=== PATIENT | female | born 1990 | race Caucasian/White ===

== ENCOUNTER 2016-04-17 17:32 | Emergency (ER) | payer MEDICAID ==
[2016-04-17 18:34] LABS: BASOPHILS 0.1 % (0.0-2.0); EOSINOPHILS 0.2 % (0-7); HEMATOCRIT 34.4 % (36.0-48.0); HEMOGLOBIN 11.9 g/dL (12-16); IMMATURE GRANULOCYTES 0.1 % (0-5); LYMPHOCYTES 12.8 % (15-50); MCH 30.7 pg (26.0-34.0); MCHC 34.6 g/dL (31.0-37.0); MCV 88.9 fL (80.0-100.0); NEUTROPHILS 82.8 % (40-80); PLATELET COUNT 205 10x3/uL (130-400); RBC 3.87 10x6/uL (4.00-5.40); RDW 13.1 % (11.5-14.5); WBC 8.3 10x3/uL (4.8-10.8)
[2016-04-17 18:42] LABS: APPEARANCE CLEAR (CLEAR); BILIRUBIN NEGATIVE (NEGATIVE); COLOR DK YELLOW (YELLOW); GLUCOSE NEGATIVE (NEGATIVE); KETONE LARGE mg/dL (NEGATIVE); LEUKOCYTE ESTERASE TRACE (NEGATIVE); NITRITE NEGATIVE (NEGATIVE); PROTEIN TRACE mg/dL (NEGATIVE); UROBILINOGEN NORMAL (NORMAL)
[2016-04-17 18:44] LABS: BACTERIA FEW /hpf (NONE SEEN); EPITHELIAL CELLS 0-5 /hpf (0-5); MUCUS <1+ /lpf (NONE SEEN); RED CELLS - URINE 0-5 /hpf (0-5); WHITE CELLS - URINE 0-5 /hpf (0-5)
[2016-04-17 18:56] LABS: ALBUMIN 3.7 g/dL (3.4-5.0); ALKALINE PHOSPHATASE 63 U/L (46-116); ALT (SGPT) 26 U/L (10-68); BILIRUBIN - TOTAL 0.59 mg/dL (0.2-1.3); CALC OSMOLALITY 267 mosm/kg (275-300); CALCIUM 9.2 mg/dL (8.5-10.1); CHLORIDE - SERUM 100 mmol/L (98-107); CREATININE - SERUM 0.6 mg/dL (0.6-1.3); GLUCOSE 95 mg/dL (74-106); POTASSIUM - SERUM 3.5 mmol/L (3.5-5.1); PROTEIN - SERUM 7.6 g/dL (6.4-8.2); SODIUM 135 mmol/L (136-145); UREA NITROGEN 7 mg/dL (7-18); eGFR NON AFRICAN AMERICAN > 90 mL/min (90-120)
[2016-04-17 19:22] LABS: AMYLASE - SERUM 47 U/L (25-115); HCG - QUANTITATIVE (MATERNAL) 56277 mIU/mL; LIPASE 93 U/L (73-393)
== END 2016-04-17 21:40 | disposition home or self-care (01) ==
LOC: D.ER 17:32
PROVIDERS: Family Medicine
DX: R10.32 Left lower quadrant pain (principal); R11.2 Nausea with vomiting, unspecified; Z3A.11 11 weeks gestation of pregnancy; B19.20 Unspecified viral hepatitis C without hepatic coma; F17.200 Nicotine dependence, unspecified, uncomplicated

== ENCOUNTER 2017-04-04 09:53 | Emergency (ER) | payer MEDICAID ==
[2017-04-04 10:41] LABS: APPEARANCE CLEAR (CLEAR); BILIRUBIN NEGATIVE (NEGATIVE); COLOR YELLOW (YELLOW); GLUCOSE NEGATIVE (NEGATIVE); KETONE NEGATIVE (NEGATIVE); NITRITE NEGATIVE (NEGATIVE); PROTEIN NEGATIVE (NEGATIVE); SPECIFIC GRAVITY 1.005 (1.005-1.020); UROBILINOGEN NORMAL (NORMAL)
[2017-04-04 10:47] LABS: BASOPHILS 0.1 % (0-2); HEMATOCRIT 35.5 % (36.0-48.0); HEMOGLOBIN 12.3 g/dL (12-16); IMMATURE GRANULOCYTES 0.3 % (0-5); LYMPHOCYTES 18.9 % (15-50); MCH 30.6 pg (26.0-34.0); MCHC 34.6 g/dL (31.0-37.0); MCV 88.3 fL (80.0-100.0); MEAN PLATELET VOLUME 8.6 fL (7.4-10.4); MONOCYTES 4.9 % (2-11); NEUTROPHILS 74.8 % (40-80); PLATELET COUNT 207 10x3/uL (130-400); RBC 4.02 10x6/uL (4.00-5.40); RDW 13.3 % (11.5-14.5); WBC 9.4 10x3/uL (4.8-10.8)
[2017-04-04 10:55] LABS: BACTERIA FEW /hpf (NONE SEEN); EPITHELIAL CELLS 0-5 /hpf (0-5); MUCUS <1+ /lpf (NONE SEEN); RED CELLS - URINE RARE /hpf (0-5); WHITE CELLS - URINE 0-5 /hpf (0-5)
[2017-04-04 11:09] LABS: ALBUMIN 3.8 g/dL (3.4-5.0); ALKALINE PHOSPHATASE 66 U/L (46-116); ALT (SGPT) 58 U/L (10-68); CALC OSMOLALITY 270 mosm/kg (275-300); CALCIUM 9.1 mg/dL (8.5-10.1); CARBON DIOXIDE 25.6 mmol/L (21.0-32.0); CHLORIDE - SERUM 104 mmol/L (98-107); CREATININE - SERUM 0.5 mg/dL (0.6-1.3); GLUCOSE 73 mg/dL (74-106); POTASSIUM - SERUM 4.1 mmol/L (3.5-5.1); PROTEIN - SERUM 7.1 g/dL (6.4-8.2); SODIUM 137 mmol/L (136-145); UREA NITROGEN 8 mg/dL (7-18); eGFR NON AFRICAN AMERICAN > 90 mL/min (90-120)
[2017-04-04 11:30] LABS: HCG - QUANTITATIVE (MATERNAL) 67242 mIU/mL
== END 2017-04-04 12:23 | disposition home or self-care (01) ==
LOC: D.ER 09:53
PROVIDERS: Family Medicine
DX: O23.41 Unspecified infection of urinary tract in pregnancy, first trimester (principal); Z3A.11 11 weeks gestation of pregnancy; A59.9 Trichomoniasis, unspecified

== ENCOUNTER 2017-04-12 23:44 | Emergency (ER) | payer MEDICAID ==
[2017-04-13 00:29] LABS: APPEARANCE CLEAR (CLEAR); BILIRUBIN NEGATIVE (NEGATIVE); COLOR YELLOW (YELLOW); GLUCOSE NEGATIVE (NEGATIVE); KETONE NEGATIVE (NEGATIVE); NITRITE NEGATIVE (NEGATIVE); PROTEIN NEGATIVE (NEGATIVE); SPECIFIC GRAVITY 1.025 (1.005-1.020); UROBILINOGEN NORMAL (NORMAL)
[2017-04-13 00:30] LABS: BASOPHILS 0.1 % (0-2); EOSINOPHILS 1.3 % (0-7); HEMATOCRIT 34.5 % (36.0-48.0); HEMOGLOBIN 11.8 g/dL (12-16); IMMATURE GRANULOCYTES 0.2 % (0-5); LYMPHOCYTES 21.8 % (15-50); MCH 30.2 pg (26.0-34.0); MCHC 34.2 g/dL (31.0-37.0); MCV 88.2 fL (80.0-100.0); MONOCYTES 5.7 % (2-11); NEUTROPHILS 70.9 % (40-80); PLATELET COUNT 209 10x3/uL (130-400); RBC 3.91 10x6/uL (4.00-5.40); RDW 13.5 % (11.5-14.5); WBC 9.3 10x3/uL (4.8-10.8)
[2017-04-13 00:43] LABS: UDS - AMPHET NEGATIVE QUAL (NEGATIVE); UDS - BARB NEGATIVE QUAL (NEGATIVE); UDS - BENZO NEGATIVE QUAL (NEGATIVE); UDS - COCAINE NEGATIVE QUAL (NEGATIVE); UDS - OPIATE NEGATIVE QUAL (NEGATIVE); UDS - PCP NEGATIVE QUAL (NEGATIVE); UDS - THC NEGATIVE QUAL (NEGATIVE)
[2017-04-13 00:50] LABS: ALBUMIN 3.7 g/dL (3.4-5.0); ALKALINE PHOSPHATASE 64 U/L (46-116); ALT (SGPT) 58 U/L (10-68); BILIRUBIN - TOTAL 0.17 mg/dL (0.2-1.3); CALC OSMOLALITY 277 mosm/kg (275-300); CARBON DIOXIDE 27.4 mmol/L (21.0-32.0); CHLORIDE - SERUM 103 mmol/L (98-107); CREATININE - SERUM 0.6 mg/dL (0.6-1.3); GLUCOSE 90 mg/dL (74-106); POTASSIUM - SERUM 3.9 mmol/L (3.5-5.1); PROTEIN - SERUM 7.1 g/dL (6.4-8.2); SODIUM 139 mmol/L (136-145); UREA NITROGEN 12 mg/dL (7-18); eGFR NON AFRICAN AMERICAN > 90 mL/min (90-120)
[2017-04-13 01:15] LABS: AMYLASE - SERUM 52 U/L (25-115); HCG - QUANTITATIVE (MATERNAL) 46908 mIU/mL; LIPASE 147 U/L (73-393)
== END 2017-04-13 01:54 | disposition home or self-care (01) ==
LOC: D.ER 23:44
PROVIDERS: Family Medicine
DX: O26.891 Other specified pregnancy related conditions, first trimester (principal); Z3A.13 13 weeks gestation of pregnancy; R10.84 Generalized abdominal pain; B19.20 Unspecified viral hepatitis C without hepatic coma

== ENCOUNTER 2017-04-13 12:12 | Emergency (ER) | payer MEDICAID ==
[2017-04-13 15:39] LABS: BASOPHILS 0.2 % (0-2); EOSINOPHILS 0.6 % (0-7); HEMATOCRIT 35.1 % (36.0-48.0); HEMOGLOBIN 12.1 g/dL (12-16); IMMATURE GRANULOCYTES 0.2 % (0-5); LYMPHOCYTES 19.6 % (15-50); MCH 30.5 pg (26.0-34.0); MCHC 34.5 g/dL (31.0-37.0); MCV 88.4 fL (80.0-100.0); MEAN PLATELET VOLUME 9.1 fL (7.4-10.4); MONOCYTES 5.4 % (2-11); PLATELET COUNT 217 10x3/uL (130-400); RBC 3.97 10x6/uL (4.00-5.40); RDW 13.4 % (11.5-14.5); WBC 10.3 10x3/uL (4.8-10.8)
[2017-04-13 16:02] LABS: ALBUMIN 3.8 g/dL (3.4-5.0); ALKALINE PHOSPHATASE 67 U/L (46-116); ALT (SGPT) 60 U/L (10-68); BILIRUBIN - TOTAL 0.34 mg/dL (0.2-1.3); CARBON DIOXIDE 24.3 mmol/L (21.0-32.0); CHLORIDE - SERUM 103 mmol/L (98-107); CREATININE - SERUM 0.5 mg/dL (0.6-1.3); GLUCOSE 87 mg/dL (74-106); POTASSIUM - SERUM 3.9 mmol/L (3.5-5.1); PROTEIN - SERUM 7.4 g/dL (6.4-8.2); SODIUM 137 mmol/L (136-145); eGFR NON AFRICAN AMERICAN > 90 mL/min (90-120)
[2017-04-13 16:03] LABS: CALC OSMOLALITY 270 mosm/kg (275-300); UREA NITROGEN 8 mg/dL (7-18)
== END 2017-04-13 17:16 | disposition home or self-care (01) ==
LOC: D.ER 12:12
PROVIDERS: Physician Assistant Medical
DX: O26.891 Other specified pregnancy related conditions, first trimester (principal); Z3A.13 13 weeks gestation of pregnancy; R07.81 Pleurodynia; B19.20 Unspecified viral hepatitis C without hepatic coma

== ENCOUNTER → 2017-08-21 09:34 | Outpatient (CLI) | payer MEDICAID ==
[~2017-08-21 09:34] MED LIST: PRENATAL COMPLE1 TAB PO
[2017-08-21 10:57] LABS: APPEARANCE CLEAR (CLEAR); BILIRUBIN NEGATIVE (NEGATIVE); COLOR YELLOW (YELLOW); GLUCOSE NEGATIVE (NEGATIVE); KETONE NEGATIVE (NEGATIVE); NITRITE NEGATIVE (NEGATIVE); PH 5.5 (5.0-6.0); PROTEIN NEGATIVE (NEGATIVE); SPECIFIC GRAVITY 1.015 (1.005-1.020); UROBILINOGEN NORMAL (NORMAL)
[2017-08-21 10:59] LABS: RED CELLS - URINE 0-5 /hpf (0-5); WHITE CELLS - URINE 0-5 /hpf (0-5)
[2017-08-21 11:01] LABS: BACTERIA FEW /hpf (NONE SEEN)
== END | disposition home or self-care (01) ==
LOC: D.LDO 09:34
PROVIDERS: Obstetrics & Gynecology
DX: O26.853 Spotting complicating pregnancy, third trimester (principal); Z3A.31 31 weeks gestation of pregnancy

== ENCOUNTER → 2017-09-03 11:36 | Outpatient (CLI) | payer MEDICAID ==
[~2017-09-03 11:36] MED LIST changes: +TYLENOL W/CODEI1 TAB
[2017-09-03 12:14] LABS: APPEARANCE CLEAR (CLEAR); BILIRUBIN NEGATIVE (NEGATIVE); COLOR STRAW (YELLOW); GLUCOSE NEGATIVE (NEGATIVE); KETONE NEGATIVE (NEGATIVE); NITRITE NEGATIVE (NEGATIVE); PROTEIN NEGATIVE (NEGATIVE); SPECIFIC GRAVITY 1.005 (1.005-1.020); UROBILINOGEN NORMAL (NORMAL)
[2017-09-03 12:57] LABS: BASOPHILS 0.1 % (0-2); EOSINOPHILS 0.7 % (0-7); HEMATOCRIT 29.4 % (36.0-48.0); HEMOGLOBIN 9.9 g/dL (12-16); LYMPHOCYTES 16.2 % (15-50); MCH 30.4 pg (26.0-34.0); MCHC 33.7 g/dL (31.0-37.0); MCV 90.2 fL (80.0-100.0); MEAN PLATELET VOLUME 9.4 fL (7.4-10.4); MONOCYTES 6.7 % (2-11); NEUTROPHILS 75.3 % (40-80); PLATELET COUNT 209 10x3/uL (130-400); RBC 3.26 10x6/uL (4.00-5.40); RDW 13.1 % (11.5-14.5); WBC 10.2 10x3/uL (4.8-10.8)
[2017-10-15 08:53] VITALS: BMI 29.7
== END | disposition home or self-care (01) ==
LOC: D.LDO 11:36
PROVIDERS: Obstetrics & Gynecology
DX: O26.893 Other specified pregnancy related conditions, third trimester (principal); Z3A.32 32 weeks gestation of pregnancy

== ENCOUNTER 2017-09-12 18:47 | Outpatient (CLI) | payer MEDICAID ==
[~2017-09-12 18:47] MED LIST changes: -TYLENOL W/CODEI1 TAB
[2017-09-12 19:40] LABS: APPEARANCE CLEAR (CLEAR); BILIRUBIN NEGATIVE (NEGATIVE); COLOR YELLOW (YELLOW); GLUCOSE NEGATIVE (NEGATIVE); KETONE NEGATIVE (NEGATIVE); NITRITE NEGATIVE (NEGATIVE); PROTEIN NEGATIVE (NEGATIVE); UROBILINOGEN NORMAL (NORMAL)
[2017-10-15 08:53] VITALS: BMI 29.7
== END 2017-09-12 21:12 | disposition home or self-care (01) ==
LOC: D.LDO 18:47
PROVIDERS: Obstetrics & Gynecology
DX: O26.893 Other specified pregnancy related conditions, third trimester (principal); Z3A.34 34 weeks gestation of pregnancy

== ENCOUNTER → 2017-09-14 11:43 | Outpatient (CLI) | payer MEDICAID ==
[~2017-09-14 11:43] MED LIST changes: +TYLENOL W/CODEI1 TAB
[2017-09-14 12:22] LABS: COLOR YELLOW (YELLOW)
[2017-09-14 12:23] LABS: APPEARANCE CLEAR (CLEAR); BILIRUBIN NEGATIVE (NEGATIVE); GLUCOSE NEGATIVE (NEGATIVE); KETONE NEGATIVE (NEGATIVE); NITRITE NEGATIVE (NEGATIVE); PROTEIN NEGATIVE (NEGATIVE); SPECIFIC GRAVITY 1.005 (1.005-1.020); UROBILINOGEN NORMAL (NORMAL)
[2017-10-15 08:53] VITALS: BMI 29.7
== END | disposition home or self-care (01) ==
LOC: D.LDO 11:43
PROVIDERS: Obstetrics & Gynecology
DX: O26.853 Spotting complicating pregnancy, third trimester (principal); Z3A.34 34 weeks gestation of pregnancy

== ENCOUNTER → 2017-09-20 12:10 | Outpatient (CLI) | payer MEDICAID ==
[2017-09-20 13:23] LABS: APPEARANCE CLEAR (CLEAR); BILIRUBIN NEGATIVE (NEGATIVE); COLOR YELLOW (YELLOW); GLUCOSE NEGATIVE (NEGATIVE); KETONE NEGATIVE (NEGATIVE); NITRITE NEGATIVE (NEGATIVE); PROTEIN NEGATIVE (NEGATIVE); SPECIFIC GRAVITY 1.015 (1.005-1.020); UROBILINOGEN NORMAL (NORMAL)
[2017-09-20 13:27] LABS: BACTERIA FEW /hpf (NONE SEEN); EPITHELIAL CELLS 0-5 /hpf (0-5); MUCUS <1+ /lpf (NONE SEEN); WHITE CELLS - URINE 0-5 /hpf (0-5)
[2017-10-15 08:53] VITALS: BMI 29.7
== END | disposition home or self-care (01) ==
LOC: D.LDO 12:10
PROVIDERS: Obstetrics & Gynecology
DX: O26.899 Other specified pregnancy related conditions, unspecified trimester (principal); Z3A.00 Weeks of gestation of pregnancy not specified

== ENCOUNTER → 2017-09-26 21:11 | Outpatient (CLI) | payer MEDICAID ==
[2017-10-15 08:53] VITALS: BMI 29.7
== END | disposition home or self-care (01) ==
LOC: D.LDO 21:11
DX: O26.893 Other specified pregnancy related conditions, third trimester (principal); Z3A.36 36 weeks gestation of pregnancy

== ENCOUNTER → 2017-10-06 20:54 | Outpatient (CLI) | payer MEDICAID ==
[2017-10-15 08:53] VITALS: BMI 29.7
== END | disposition home or self-care (01) ==
LOC: D.LDO 20:54
DX: O26.893 Other specified pregnancy related conditions, third trimester (principal); Z3A.37 37 weeks gestation of pregnancy

== ENCOUNTER → 2017-10-08 14:09 | Outpatient (CLI) | payer MEDICAID ==
[2017-10-15 08:53] VITALS: BMI 29.7
== END | disposition home or self-care (01) ==
LOC: D.LDO 14:09
DX: O26.893 Other specified pregnancy related conditions, third trimester (principal); Z3A.38 38 weeks gestation of pregnancy

== ENCOUNTER 2017-10-14 20:46 | Inpatient (IN) | payer MEDICAID ==
[~2017-10-14] VITALS: Ht 170.2 cm; Wt 86.2 kg
--- NOTE | ~2017-10-14 | OP ---
PATIENT NAME: GLENN GARCIA MEDICAL RECORD: [id number] :89 LOCATION:[id number] ADMISSION DATE:10/14/17 SURGEON: ADRIA LIND MD DATE OF OPERATION: 10/15/2017 PREDELIVERY DIAGNOSIS: Mother at term. POSTDELIVERY DIAGNOSIS: Mother delivered at term. PROCEDURE: Induction of labor with vaginal delivery. ATTENDING PHYSICIAN: Adria Lind MD ANESTHETIC: Continuous lumbar epidural. FINDINGS: Viable female infant, TEODORA presentation. Apgars are 9 and 9 with weight of 7 pounds 6 ounces. First-degree laceration without repair. Placenta spontaneous and intact. ESTIMATED BLOOD LOSS: 300 cc. DISPOSITION: Mother and recovered in the room. TRANSINT:[id number] Voice Confirmation ID: [id number] DOCUMENT ID: [id number] ADRIA LIND MD at 1817 CC: [id number] DICTATION DATE: 10/15/17 1139 SANITARY CHEMIST: 10/15/17 1251 ADM IN [place] [id number] [place] [address]
--- NOTE | ~2017-10-14 | DS ---
PATIENT:GLENN GARCIA :91 MEDICAL RECORD: [id number] DISCHARGE SUMMARY ADMISSION DATE: 10/14/17 DISCHARGE DATE: 10/17/17 DATE OF DISCHARGE: 10/17/2017 ADMISSION DIAGNOSIS: at term. DISCHARGE DIAGNOSES: 1. Mother delivered at term. 2. Tooth abscess. ATTENDING: Bennie Lion MD PROCEDURE PERFORMED: Vaginal delivery. HISTORY OF PRESENT ILLNESS: See the H&P in the chart. SUMMARY OF HOSPITALIZATION: The patient was admitted to the hospital and underwent induction of labor and delivered without incident. At the time of discharge, she has no OB complaints and reports rwlkvdd-dh-wgqbvtac lochia. The patient has adequate pain control at this time. She is reporting left molar pain. The area is swollen and edematous and appears abscessed. I will discharge her home on clindamycin and [place] for her discomforts. She states she is following up with a dentist today or tomorrow. Pain and fever precautions have been reviewed as well as standard precautions. The patient will follow up in 6 weeks at [facility]. TRANSINT:[id number] Voice Confirmation ID: [id number] DOCUMENT ID: [id number] BENNIE LION MD at 1253 CC: [id number] DICTATION DATE: 10/17/17723 OUTREACH PROFESSIONAL: 10/17/17 1430 DIS IN 10/17/17 [facility] [address] [place] [address]
[~2017-10-14 20:46] MED LIST changes: -TYLENOL W/CODEI1 TAB
[2017-10-14 22:02] VITALS: BP 110/59; BMI 29.8
[2017-10-14] MEDS ORDERED: TYLENOL W/CODEI1 TAB (22:02)
[2017-10-14 22:37] LABS: APPEARANCE CLEAR (CLEAR); BILIRUBIN NEGATIVE (NEGATIVE); COLOR YELLOW (YELLOW); GLUCOSE NEGATIVE (NEGATIVE); KETONE NEGATIVE (NEGATIVE); NITRITE NEGATIVE (NEGATIVE); PROTEIN NEGATIVE (NEGATIVE); UROBILINOGEN NORMAL (NORMAL)
[2017-10-14 22:38] LABS: HEMATOCRIT 28.7 % (36.0-48.0); HEMOGLOBIN 9.6 g/dL (12-16); MCH 29.4 pg (26.0-34.0); MCHC 33.4 g/dL (31.0-37.0); MCV 87.8 fL (80.0-100.0); MEAN PLATELET VOLUME 9.4 fL (7.4-10.4); RBC 3.27 10x6/uL (4.00-5.40); WBC 11.8 10x3/uL (4.8-10.8)
[2017-10-14 22:49] LABS: UDS - AMPHET NEGATIVE QUAL (NEGATIVE); UDS - BARB NEGATIVE QUAL (NEGATIVE); UDS - BENZO NEGATIVE QUAL (NEGATIVE); UDS - COCAINE NEGATIVE QUAL (NEGATIVE); UDS - OPIATE POSITIVE QUAL (NEGATIVE); UDS - PCP NEGATIVE QUAL (NEGATIVE); UDS - THC NEGATIVE QUAL (NEGATIVE)
[2017-10-15 08:53] VITALS: Ht 170.2 cm; Wt 86.2 kg
[2017-10-15 15:31] VITALS: BP 101/61
[2017-10-15 20:45] VITALS: BP 107/51
[2017-10-16 07:21] VITALS: BP 114/57
[2017-10-16 07:36] LABS: RAPID PLASMA REAGIN Non Reactive (Non Reactive)
[2017-10-16 11:38] VITALS: BP 109/70
[2017-10-16 16:51] VITALS: BP 105/64
[2017-10-16 19:32] VITALS: BP 97/44
[2017-10-17 07:25] VITALS: BP 104/65
[2017-10-19 13:19] LABS: UDSC - AMPHET Negative ng/mL (Cutoff=1000); UDSC - BARB Negative ng/mL (Cutoff=300); UDSC - BENZO Negative ng/mL (Cutoff=300); UDSC - COC Negative ng/mL (Cutoff=300); UDSC - METH Negative ng/mL (Cutoff=300); UDSC - OPIATES Positive (Cutoff=300); UDSC - PCP Negative ng/mL (Cutoff=25); UDSC - PROPOXY Negative ng/mL (Cutoff=300); UDSC - THC Negative ng/mL (Cutoff=50)
== END 2017-10-17 11:20 | disposition home or self-care (01) | DRG 774 ==
LOC: D.LD 20:46
PROVIDERS: Obstetrics & Gynecology
PROC: 10E0XZZ Delivery of Products of Conception, External Approach (ICD-10-PCS; principal; 2017-10-15)
PROC: 3E0P7VZ Introduction of Hormone into Female Reproductive, Via Natural or Artificial Opening (ICD-10-PCS; 2017-10-15)
PROC: 10907ZC Drainage of Amniotic Fluid, Therapeutic from Products of Conception, Via Natural or Artificial Opening (ICD-10-PCS; 2017-10-15)
DX: O36.0930 Maternal care for other rhesus isoimmunization, third trimester, not applicable or unspecified (principal); O98.42 Viral hepatitis complicating childbirth; Z37.0 Single live birth; Z3A.39 39 weeks gestation of pregnancy; O99.334 Smoking (tobacco) complicating childbirth; O75.89 Other specified complications of labor and delivery; K04.7 Periapical abscess without sinus; O70.0 First degree perineal laceration during delivery; B19.20 Unspecified viral hepatitis C without hepatic coma

== ENCOUNTER 2018-01-07 07:00 | Day surgery (SDC) | payer MEDICAID ==
[2018-01-04 11:13] LABS: BASOPHILS 0.3 % (0-2); EOSINOPHILS 1.7 % (0-7); HEMATOCRIT 38.1 % (36.0-48.0); HEMOGLOBIN 12.8 g/dL (12-16); LYMPHOCYTES 32.5 % (15-50); MCH 29.4 pg (26.0-34.0); MCHC 33.6 g/dL (31.0-37.0); MCV 87.6 fL (80.0-100.0); MONOCYTES 6.3 % (2-11); NEUTROPHILS 59.2 % (40-80); PLATELET COUNT 225 10x3/uL (130-400); RBC 4.35 10x6/uL (4.00-5.40); RDW 14.9 % (11.5-14.5); WBC 7.5 10x3/uL (4.8-10.8)
[~2018-01-07] VITALS: Ht 170.2 cm; Wt 76.2 kg
--- NOTE | ~2018-01-07 | OP ---
PATIENT NAME: GLENN GARCIA MEDICAL RECORD: [id number] :91 LOCATION:D.[facility]ERLY [facility] ADMISSION DATE: SURGEON: BENNIE LION MD DATE OF OPERATION: 01/07/2018 PREOPERATIVE DIAGNOSIS: Undesired fertility. POSTOPERATIVE DIAGNOSIS: Undesired fertility. PROCEDURES: 1. Diagnostic laparoscopy. 2. Bilateral tubal occlusion using Falope rings. ATTENDING SURGEON: Bennie Lion MD. ANESTHESIOLOGIST: Dr. Solis. ANESTHETIC: General. FINDINGS: Uterus is unremarkable as well as the tubes and ovaries. What was seen of the abdominal anatomy was unremarkable. SPECIMENS REMOVED: Not applicable. ESTIMATED BLOOD LOSS: Minimal. FLUIDS: 1 liter of lactated Ringer's. URINE OUTPUT: Quantity sufficient void prior to the procedure. COMPLICATIONS: None. INDICATIONS: The patient is a 28-year-old multiparous female with unwanted fertility. Risks and benefits as well as alternatives to tubal ligation have been described. The patient also understands the risk of ectopic and the possibility of this being a life-threatening process if not adequately treated. The patient acknowledged all risks and alternatives and wishes to proceed. DESCRIPTION OF PROCEDURE: After informed consent was assured, the patient was taken to the operating room where anesthetic was obtained without difficulty. The patient was prepped and draped in the usual sterile fashion. An incision was made at the umbilicus to accommodate a 5-mm trocar. This trocar was inserted without difficulty and pneumoperitoneum developed. Accessory ports are now placed 2 fingerbreadths above the symphysis in the midline. With the patient in steep Trendelenburg position, the bowel was swept free of the pelvis. A Falope ring was applied on the left tube at the isthmic portion. This was performed with good crease formation and blanching of the portion of the tube contained within the Falope ring. This process was repeated on the contralateral side. Tube was run to the fimbriated end, again the ring was applied to the isthmic portion of the tube, resulting in good crease formation and blanching. Marcaine was placed directly over both tubal occlusion sites and the accessory trocars were removed under direct visualization. The pneumoperitoneum was released and all sites closed with a subcuticular stitch and Dermabond applied. Sponge, lap, and needle count correct times 2. OPERATIVE REPORT [id number] GLENN GARCIA TRANSINT:[id number] Voice Confirmation ID: [id number] DOCUMENT ID: [id number] BENNIE LION MD at 1243 CC: [id number] DICTATION DATE: 01/07/18 1043 SPORTS COORDINATOR: 01/07/18 1107 [facility] [place] 01/07/18 [facility] [address] [place] [id number]
[~2018-01-07 07:00] MED LIST changes: +TYLENOL W/CODEI1 TAB
[2018-01-07 07:39] VITALS: BP 101/51; Ht 170.2 cm; Wt 76.2 kg
[2018-01-07 08:07] LABS: HCG URINE NEGATIVE (NEGATIVE)
== END 2018-01-07 12:20 | disposition home or self-care (01) ==
LOC: D.OPS 07:00 → D.PAN 07:30 → D.OPS 08:00 → D.PAN 09:25 → D.OPS 09:30
PROVIDERS: Obstetrics & Gynecology
DX: Z30.2 Encounter for sterilization (principal); Z01.812 Encounter for preprocedural laboratory examination